=== PATIENT | female | born 1990 | race Caucasian/White ===

== ENCOUNTER → 2017-12-05 15:31 | Outpatient (CLI) | payer MEDICAID, SELFPAY | PROVIDERS: Visit Provider Obstetrics & Gynecology | DX: R30.0 Dysuria (principal) | CPT/HCPCS: 87086; 87088 ==

== ENCOUNTER → 2018-03-02 13:23 | Outpatient (CLI) | payer MEDICAID, SELFPAY ==
--- NOTE | 2018-03-02 13:30 | US_ITS ---
STUDY: ULTRASOUND BREAST - LEFT REASON FOR EXAM: Female, 27 years old. History of left nipple discharge and rash along the lateral aspect of the left breast. TECHNIQUE: Axial and longitudinal images of the LEFT breast were performed with a high resolution ultrasound transducer. COMPARISON: None. FINDINGS: LEFT Breast: The lateral aspect of the left breast was examined by ultrasound. There is a 6 mm x 7 mm x 2 mm hypoechoic superficial nodular density just deep to the skin. This is at the 2 to 3:00 position. A similar-appearing hypoechoic density is seen at T4 30 position breast at 5 cm from the nipple. This measures 4 mm x 2 mm x 2 mm. US/Breast Limited Unilateral IMPRESSION: Findings suggestive of 2 small sebaceous cysts just deep to the skin. Clinical correlation is recommended. ASSESSMENT CATEGORY: BIRADS Category 2: Benign. A letter regarding these results will be sent to the patient by the facility within 30 days. Electronically Signed: Kaveh Randall MD at 9:41 EDT Tel [phone], Service support ,
== END ==
PROVIDERS: Family Provider Family Medicine; PCP Family Medicine; Visit Provider Obstetrics & Gynecology
DX: N60.82 Other benign mammary dysplasias of left breast (principal)
CPT/HCPCS: 76642

== ENCOUNTER 2018-05-08 21:43 | Emergency (ER) | payer MEDICAID, SELFPAY ==
[2018-05-08 21:45] VITALS: BP 142/60; PULSE 110; RESP 18; TEMP 37.2; O2SAT 99; BMI 31.4
--- NOTE | 2018-05-08 21:47 | RAD_ITS ---
STUDY: X-RAY - RIGHT ELBOW REASON FOR EXAM: Female, 27 years old. Fall TECHNIQUE: 3 view(s) of the elbow. COMPARISON: None. FINDINGS: There is no evidence of fracture or dislocation. There are no significant degenerative changes. There are no radiodense foreign bodies. RAD/Elbow min 3 Views IMPRESSION: No fracture or dislocation. Electronically Signed: Vinay Vivas, at 22:07 EDT Tel , Service support ,
--- NOTE | 2018-05-08 22:46 | ED.VISSUMM ---
- ER Visit Summary Date of Service: 05/08/18 Chief Complaint: Elbow pain History of Present Illness: The patient is a 27 F with right elbow pain. The patient fell off a trampoline yesterday. She complains of pain over her right olecranon area. Worse with movement. No other injuries or complaints. She does have some paresthesias in her right thumb and right little finger. Physical Examination: Afebrile vital signs unremarkable except for a heart rate of 110. Head and neck are atraumatic. Inspection of her right arm is normal. She has good range of motion. There is tenderness over her right olecranon. Neurovascular intact distally. No deformities. Test Results: X-rays unremarkable. Emergency Department Course and Treatment: Rest, ice, elevate. Anti-inflammatories. Sling. Follow-up with primary care for recheck. Treatment Plan: As above Disposition: Discharged Impression: 1. Right elbow contusion This note was generated with [employer] dictation software. It may contain incorrect words, spelling, and punctuation that were not noted in review of the chart prior to signing ED Disposition - Plan for ED Patient: Chief Complaint: Upper Extremity Injury Referrals: Anthony Almodovar MD [Primary Care Provider] -
--- NOTE | 2018-05-08 22:48 | ED.DEP ---
ED Disposition - Plan for ED Patient: Chief Complaint: Upper Extremity Injury Instructions: ED Sprain Elbow Prescriptions: Naproxen [Naprosyn] 500 mg PO BID PRN #20 tab Referrals: Anthony Almodovar MD [Primary Care Provider] -
[2018-05-08 23:11] VITALS: PULSE 88; RESP 16
== END 2018-05-08 23:12 | disposition home or self-care (01) ==
PROVIDERS: Emergency Provider Emergency Medicine; Family Provider Family Medicine; PCP Family Medicine
DX: S50.01XA Contusion of right elbow, initial encounter (principal); W17.89XA Other fall from one level to another, initial encounter; Y93.44 Activity, trampolining; Y92.9 Unspecified place or not applicable; Z72.0 Tobacco use
CPT/HCPCS: 73080; 99283

== ENCOUNTER 2018-07-15 02:31 | Emergency (ER) | payer MEDICAID, SELFPAY ==
[2018-07-15 02:32] VITALS: BP 132/99; PULSE 110; RESP 16; TEMP 37; O2SAT 99; BMI 33.3
--- NOTE | 2018-07-15 02:59 | ED.VISSUMM ---
- ER Visit Summary Date of Service: 07/15/18 Chief Complaint: Medication reaction History of Present Illness: The patient is a 27 F presenting for evaluation secondary to a potential medication reaction. Patient reports over the course of approximately the last week she has been dealing with some lower back pain and over the course last couple of days it was associated with suprapubic pain and pain with urination. Patient states that it has not been associated with any sort of fevers. She denies any nausea or vomiting associated with this. She was seen at an outside facility for this today, and had a CT scan of the abdomen rule out kidney stones and had a urinalysis that showed evidence of infection. Patient reports that she received a shot of Toradol and Rocephin. Patient reports that the injection site of the Rocephin on the left seems to be painful and seems to be radiating up into her paraspinal lower back on the left. She denies any radiation to legs bowel or bladder and continence or any saddle anesthesia or numbness. Patient was concerned that this is potentially an allergic reaction as she does have a history of hives in reaction to penicillin in the past. She is unsure if she was discharged with any sort of antibiotics. Physical Examination: Vital signs are within normal limits except for tachycardia with a rate of 110, patient is afebrile. General: Patient is well-nourished well-developed and in no acute distress. Head: Normocephalic, atraumatic Eyes: Pupils equal round and reactive bilaterally, extra occular motion intact bialterally ENT: Moist mucous membranes Neck: Supple, no lymphadenopathy, no JVD, no meningismus CVS: Heart regular rhythm with tachycardia, no murmurs, rubs or gallops, radial pulses 2+ bilaterally Resp: Respirations nondistressed, lung sounds clear bilaterally Abdomen: Soft, nontender, nondistended, no palpable masses, normal bowel sounds Back: Left-sided lumbar paraspinal tenderness to palpation. Left upper buttock injection site clean dry and intact Extremities: Nontender, atraumatic, active full range of motion, no peripheral edema Skin: warm, no rashes, no petechia Neuro: Alert and oriented x 4, CN 2-12 intact, no lateralizing neurological defecits Psyc: Normal affect Test Results: CBC, chemistry unremarkable. Urinalysis demonstrates evidence of infection Emergency Department Course and Treatment: Patient presented for evaluation secondary to pain after an injection. She was somewhat tachycardic I was at least concerned for the possibility of pyelonephritis and the patient so workup was obtained she was given 2 L normal saline was given [place]. She did have improvement on repeat evaluation. Her urinalysis did demonstrate evidence of infection. She has no evidence of spinal cord involvement or any serious neurologic compromise and this also does not seem consistent with an allergic reaction. She likely has some injection site pain. Given the fact that the patient was unsure of whether or not she was discharged with any antibiotics I will send her home with a course of Bactrim. She will follow-up with her primary care physician. Disposition: Discharge Impression: 1. Injection site pain 2. Urinary tract infection This note was generated with [email or web address] dictation software. It may contain incorrect words, spelling, and punctuation that were not noted in review of the chart prior to signing ED Disposition - Plan for ED Patient: Disposition: Home or Assisted Living Chief Complaint: Allergic Reaction Diagnosis: UTI (urinary tract infection) Instructions: ED UTI Cystitis Female Prescriptions: Smz/Tmp Ds [Bactrim Ds] 1 tab PO BID #14 tab Referrals: Anthony Almodovar MD [Primary Care Provider] - 3-5 Days
[2018-07-15] MEDS: HYDROcodone Bitartrate/Apap 5/325 Tablet PO ×2 (03:11→05:22)
[2018-07-15] MEDS: 0.9% Normal Saline 1,000 ML 1000 ML IV ×2 (03:11→04:31)
[2018-07-15 03:20] LABS: Red Blood Cells-Urine 0 SEEN /hpf (0-5)
[2018-07-15 03:27] LABS: Color, Urine Yellow (Yellow); Glucose, Dipstick Normal (Normal); Ketone-Dipstick 5 mg/dl (Negative); Leukocyte Esterase-Dipstick 500 /ul (Negative); Nitrite-Dipstick Negative (Negative); Occult Blood-Urine 10 /ul (Negative); Protein-Dipstick 30 mg/dl (Negative); Specific Gravity, Urine 1.025 (1.002-1.030); Urine Bilirubin Dipstick Negative (Negative); Urine Clarity Cloudy (Clear); Urine Urobilinogen 1 mg/dl (Normal)
[2018-07-15 03:28] LABS: Internal QC Validated? YES +Cl - CLEAR BKGD; Pregnancy, Urine Negative Negative
[2018-07-15 03:31] LABS: Absolute Lymphocyte Count 2.74 X10^3/ul (0.83-4.51); Absolute Neutrophil Count 5.1 X10^3/uL (2.0-7.7); Basophil# 0.04 X10^3/uL; Basophil% 0.5 % (0-1); Eosinophil# 0.04 X10^3/uL; Eosinophils% 0.5 % (0-5); Hematocrit 40.5 % (37-47); Hemoglobin 14.2 g/dl (12.0-15.0); Lymphocyte # 2.74 X10^3/ul (4.0); Lymphocyte % 31.4 % (19-41); Mean Corp Hgb Conc 35.1 g/gl (32-36); Mean Corpuscular Hgb 28.8 pg (27.0-32.0); Mean Corpuscular Volume 82.2 fL (81-99); Mean Platelet Vol. 9.8 fl (6.2-12.0); Monocyte# 0.78 X10^3/uL; Monocyte% 8.9 % (0-10); Neutrophil # 5.12 X10^3/uL (2.7-7.7); Neutrophil % 58.6 % (47-70); Platelet Count 243 K/mm3 (150-450); RBC Distribution Width CV 13.8 % (11.6-14.6); RBC Distribution Width SD 41.1 fl (35.1-43.9); Red Blood Count 4.93 M/mm3 (4.2-5.4); White Blood Count 8.7 K/mm3 (4.4-11.0)
[2018-07-15 03:32] LABS: Differential Indicated SCAN CRITERIA MET; POSITIVE COUNT NO; POSITIVE DIFFERENTIAL NO; POSITIVE MORPHOLOGY YES
[2018-07-15 03:33] LABS: Bacteria 1+ /hpf (None Seen); Mucous, Urine 2+ /hpf (<or=2+); Squamous Epithelial Cells - UA 25-50 SEEN /hpf (5-10); White Blood Cells 5-10 SEEN /hpf (0-5)
[2018-07-15 03:34] LABS: Anion Gap 11 (5-15); BUN 18 mg/dL (7-18); BUN/Creat Ratio 22.3 RATIO (10-20); Calcium,Total 9.1 mg/dL (8.5-10.1); Chloride 103 mmol/L (98-107); Creatinine, Serum 0.81 mg/dL (0.55-1.02); EST Glomerular Filtration Rate 89 mL/min (>60); Est Glom Filt Rate - Afr Amer 108 mL/min (>60); Estimated Creatinine Clearance 84.77 ml/min; Glucose 102 mg/dL (74-106); Potassium 3.6 mmol/L (3.5-5.1); Sodium Level 142 mmol/L (136-145)
[2018-07-15 05:30] VITALS: BP 116/84; PULSE 91; RESP 16; RESP 18; O2SAT 100
== END 2018-07-15 05:30 | disposition home or self-care (01) ==
PROVIDERS: Emergency Provider Emergency Medicine; Family Provider Family Medicine; PCP Family Medicine
DX: M79.1 Myalgia (principal); N39.0 Urinary tract infection, site not specified; B96.89 Other specified bacterial agents as the cause of diseases classified elsewhere
CPT/HCPCS: 80048; 81001; 81025; 85025; 96360; 96361; 99284; J7030

== ENCOUNTER 2020-04-19 16:12 | Emergency (ER) | payer SELFPAY ==
[2020-04-19 16:14] VITALS: BP 87/31; PULSE 75; RESP 16; TEMP 36.4; O2SAT 93; BMI 30.9
[2020-04-19 16:16] VITALS: BP 107/94; PULSE 75; RESP 16; TEMP 36.4; O2SAT 93
--- NOTE | 2020-04-19 16:24 | ED.VISSUMM ---
- ER Visit Summary Date of Service: 04/19/20 Chief Complaint: Abscess History of Present Illness: The patient is a [address] Terry. She reports that she has an abscess to the left side of her neck anteriorly began yesterday. States that she squeezed this and got out pus and blood. She has an achy present and worsens at a 10 currently. Is worsened by touching it. Is relieved by Tylenol and ibuprofen. She denies any constitutional symptoms. No fever, chills, nausea, or vomiting. Physical Examination: Vitals: Stable. Afebrile. General: Well-nourished and well-developed. Head: Normocephalic atraumatic. Neck: Supple, no lymphadenopathy. No JVD. Nontender. Cardiovascular: Regular rate and rhythm. No murmurs. Respiratory: No respiratory distress. Clear to auscultation bilaterally. Abdominal: Soft, nontender, nondistended, normal bowel sounds. No guarding, rebound, or peritoneal signs. Back: Nontender. Extremities: Nontender, no edema. Skin: To the left side of her neck on the anterior portion there is an approximately 5 mm superficial ulcer with approximately 2 cm of surrounding erythema. There is no induration, fluctuance, or drainage.. Neurologic: Alert and oriented ?3. Cranial nerves II through XII are intact. Normal strength and sensation. Psych: Normal affect. Emergency Department Course and Treatment: Had a prolonged discussion with patient at this time there is no purulent collection to be drained. She was given doxycycline p.o. Treatment Plan: Patient is instructed to use warm compresses to the area. She will be discharged with doxycycline and Bactroban. Follow-up with her primary care physician in 2 days for a wound check. She does understand of his not improving with conservative measures that ultimately she may require an I&D. Disposition: To home in improved and stable condition. Impression: 1. Small abscess to left side of neck. This note was generated with [employer] dictation software. It may contain incorrect words, spelling, and punctuation that were not noted in review of the chart prior to signing ED Disposition - Plan for ED Patient: Instructions: ED Abscess Antibiotic Treatment Only Prescriptions: Mupirocin [Bactroban] 1 applic TOPICAL TID #1 tube Doxycycline 100 mg PO BID #14 capsule Referrals: Anthony Almodovar MD [Primary Care Provider] - 2 Days for wound check
[2020-04-19] MEDS: Doxycycline 100 MG CAPSULE PO (16:27)
== END 2020-04-19 16:39 | disposition home or self-care (01) ==
PROVIDERS: Emergency Provider Emergency Medicine; PCP Family Medicine
DX: L02.11 Cutaneous abscess of neck (principal); F17.200 Nicotine dependence, unspecified, uncomplicated
CPT/HCPCS: 99283

== ENCOUNTER 2020-09-20 17:19 | Emergency (ER) | payer SELFPAY ==
[2020-09-20 17:21] VITALS: BP 131/103; PULSE 108; RESP 17; TEMP 36.4; O2SAT 98; BMI 27.1
--- NOTE | 2020-09-20 17:53 | CT_ITS ---
STUDY: CT ABDOMEN AND PELVIS WITHOUT CONTRAST REASON FOR EXAM: Female, 29 years old. LEFT FLANK PAIN X 1 DAY, HX KS, APPY, GB, IUD, LEFT OOPHRECTOMY, HYSTERECTOMY, TUBAL RADIATION DOSAGE (If Supplied By Facility): CTDIvol = ( 7.51 ) mGy, DLP = ( 384.49 ) mGycm TECHNIQUE: Transaxial images were obtained from the dome of the diaphragm to the symphysis pubis without oral contrast, and without intravenous contrast. Sagittal and coronal images were reconstructed. Individualized dose optimization techniques were used for this CT. COMPARISON: 08/29/2016 FINDINGS: The visualized lung bases are unremarkable. The visualized portions of the heart are within normal limits. There is decreased attenuation of the liver consistent with steatosis. The gallbladder is absent. Normal spleen. Normal pancreas. Normal bilateral adrenal glands. Normal right kidney. 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 No hydronephrosis or calcifications. Normal visualized stomach. Normal small intestine. There are multiple colonic diverticula consistent with diverticulosis. There is non-visualization of the appendix. Normal abdominal aorta. Normal inferior vena cava. Normal retroperitoneum. Normal urinary bladder. There is absence of the uterus consistent with a prior hysterectomy. Operative changes of the abdominal wall. Normal osseous structures. CT/Abdomen/Pelvis without Cont IMPRESSION: 1. No hydronephrosis or urinary tract calcifications. Electronically Signed: Segundo Faustin MD ([place]) at 18:26 EST , Service support ,
--- NOTE | 2020-09-20 17:54 | ED.DCSUM_ITS ---
- ER Visit Summary Date of Service: 09/20/20 Chief Complaint: Left flank pain History of Present Illness: The patient is a 29 F who presents with left flank pain that began yesterday. Patient states it has gradually gotten worse. Patient states it is worse today. Patient describes the pain is sharp and b urning. Patient states the pain is localized to the left flank area. Patient states nothing makes it better or worse. Patient states she has a history of kidney stones and this feels similar to prior kidney stone pain. Patient denies any dysuria or hematuria. Patient admits to nausea but denies any vomiting. Physical Examination: Vital signs are stable. Patient is afebrile. Patient is in no acute distress. Oral mucosa is pink and moist. Neck is supple. Trachea is midline. There is no JVD. Heart was regular rate and rhythm. Lungs are clear and equal bilaterally. Abdomen is soft. Bowel sounds are normal. There is no tenderness. There is some left CVA tenderness. There is no rebound or guarding noted. Cranial nerves II through XII are intact. There are no focal motor or sensory deficits noted. Extremities are intact. There is no calf tenderness or edema. Test Results: CBC and basic metabolic profile were obtained were within normal limits. Urinalysis does not show any evidence of urinary tract infection. CT scan of the abdomen and pelvis was obtained. There is no acute abnormality noted. This was interpreted by the radiologist and reviewed by myself. Emergency Department Course and Treatment: Patient was given IV fluids, Toradol, and Zofran initially. Patient was having persistent pain. Patient was given a dose of morphine. Patient was advised of her findings. Patient was instructed to follow-up with her primary care physician in 5 to 7 days. Patient was instru cted to take Tylenol or ibuprofen as needed for pain. Patient understood and was agreeable with the plan. All questions were answered. Disposition: Discharge home Impression: 1. Left flank pain This note was generated with [employer] dictation software. It may contain incorrect words, spelling, and punctuation that were not noted in review of the chart prior to signing ED Disposition - Plan for ED Patient: Disposition: Home or Assisted Living Diagnosis: Left flank pain Instructions: ED Flank Pain Uncertain Cause Referrals: Anthony Almodovar MD [Primary Care Provider] - 3-5 Days
[2020-09-20] MEDS: 0.9% Normal Saline 1,000 ML 250 ML IV (17:58)
[2020-09-20] MEDS: Ondansetron 4 MG/2 ML Vial IV (17:59)
[2020-09-20] MEDS: Ketorolac 30 MG/ML Syringe IV (18:00)
[2020-09-20 18:08] LABS: Absolute Lymphocyte Count 1.49 X10^3/uL (0.83-4.51); Absolute Neutrophil Count 7.3 X10^3/uL (2.0-7.7); Basophil# 0.02 X10^3/uL; Basophil% 0.2 % (0-1); Eosinophil# 0.01 X10^3/uL; Eosinophils% 0.1 % (0-5); Hematocrit 42.6 % (37-47); Lymphocyte # 1.49 X10^3/ul (4.0); Lymphocyte % 16.3 % (19-41); Mean Corp Hgb Conc 35.2 g/dL (32-36); Mean Corpuscular Hgb 30.9 pg (27.0-32.0); Mean Corpuscular Volume 87.7 fL (81-99); Mean Platelet Vol. 9.8 fl (6.2-12.0); Monocyte# 0.32 X10^3/uL; Monocyte% 3.5 % (0-10); NRBC Flagged by Analyzer 0 % (0-5); Neutrophil # 7.26 X10^3/uL (2.7-7.7); Neutrophil % 79.7 % (47-70); Platelet Count 332 K/mm3 (150-450); RBC Distribution Width CV 12.8 % (11.6-14.6); RBC Distribution Width SD 38.1 fl (35.1-43.9); Red Blood Count 4.86 M/mm3 (4.2-5.4); White Blood Count 9.1 K/mm3 (4.4-11.0)
[2020-09-20 18:17] LABS: Anion Gap 8 (5-15); BUN 11 mg/dL (7-18); BUN/Creat Ratio 14.4 RATIO (10-20); Calcium,Total 9.5 mg/dL (8.5-10.1); Chloride 104 mmol/L (98-107); Creatinine, Serum 0.76 mg/dL (0.55-1.02); EST Glomerular Filtration Rate 93 mL/min (>60); Est Glom Filt Rate - Afr Amer 113 mL/min (>60); Estimated Creatinine Clearance 92.62 ml/min; Glucose 124 mg/dL (74-106); Potassium 3.8 mmol/L (3.5-5.1); Sodium Level 140 mmol/L (136-145)
[2020-09-20 18:30] LABS: Bacteria 0 SEEN /hpf (None Seen); Color, Urine Yellow (Yellow); Glucose, Dipstick Normal (Normal); Ketone-Dipstick Negative (Negative); Leukocyte Esterase-Dipstick 25 /ul (Negative); Mucous, Urine 0 SEEN /hpf (<or=2+); Nitrite-Dipstick Negative (Negative); Occult Blood-Urine 10 /ul (Negative); Protein-Dipstick Negative (Negative); Red Blood Cells-Urine 0 SEEN /hpf (0-5); Urine Bilirubin Dipstick Negative (Negative); Urine Clarity Clear (Clear); Urine Urobilinogen Normal (Normal); Urine pH 6.5 (5.0 - 8.0)
[2020-09-20 18:36] LABS: Squamous Epithelial Cells - UA 5-10 SEEN /hpf (5-10); White Blood Cells 0-5 SEEN /hpf (0-5)
[2020-09-20] MEDS: Morphine 2 MG/ML Syringe IV (19:32)
[2020-09-20 19:42] VITALS: BP 116/71; PULSE 74; RESP 15; O2SAT 98
--- NOTE | 2020-09-20 19:43 | ED.RN ---
PT OBSERVED FOR SHOT TIME NO REACTION NOTED BY THIS RN, PT D/C WITH DAD.
== END 2020-09-20 19:44 | disposition home or self-care (01) ==
PROVIDERS: Emergency Provider Emergency Medicine; PCP Family Medicine
DX: R10.9 Unspecified abdominal pain (principal); R11.0 Nausea; Z87.442 Personal history of urinary calculi; F17.200 Nicotine dependence, unspecified, uncomplicated
CPT/HCPCS: 74176; 80048; 81001; 85025; 96361; 96374; 96375; 99285; J7030; A4216; J2405

== ENCOUNTER 2023-02-09 19:43 | Emergency (ER) | payer MEDICAID, SELFPAY ==
[2023-02-09 19:44] VITALS: BP 135/87; PULSE 86; RESP 16; TEMP 37; O2SAT 96; BMI 34.0
--- NOTE | 2023-02-09 20:48 | EX.ED.DYSGE1 ---
HPI History of Present Illness Chief Complaint: Cough Informant: patient Narrative Narrative: 3-week history nonproductive cough. No fevers or myalgias. Reports dyspnea. Denies history of asthma or COPD. Tobacco history. Seen urgent care 2 weeks ago was put on 10-day course of doxycycline COVID was negative then. Symptoms not improving. Prior similar symptoms: Yes [facility] Medical History (Updated 02/09/23 @ 21:[address] John Teresa DO) Cough Home Medications NK 09/20/20 [History Last Taken Unknown] Allergy/AdvReac Type Severity Reaction Status Date / Time azithromycin [From Zithromax] Allergy Hives Verified 02/09/23 19:47 diphenhydramine Allergy Rash Verified 02/09/23 19:47 [From Benadryl] Penicillins Allergy Hives Verified 02/09/23 19:47 Social History Smoking Status: Current every day smoker tobacco type: cigarettes ROS ROS ED Constitutional Constitutional ED: Denies chills, fever(s) or sweats Eyes Eyes: Denies change in vision ENT ENT ED: Denies dysphagia or sore throat Cardiovascular Cardiovascular: Denies chest pain, leg edema, palpitations or racing heartbeat Respiratory/Chest Respiratory/Chest: Reports cough and dyspnea; Denies dyspnea on exertion Gastrointestinal Gastrointestinal: Denies abdominal pain, diarrhea, nausea or vomiting Genitourinary Genitourinary ED: Denies dysuria, hematuria or urinary frequency Musculoskeletal Musculoskeletal: Denies back pain, extremity pain or neck pain Integumentary Denies rash or wounds Neurologic Neurologic: Denies headache(s), paresthesias or weakness EXAM Physical Exam Const Vital Signs: 02/09/23 19:44 02/09/23 20:35 02/09/23 20:58 Temperature 98.6 F Temperature Source Temporal Pulse Rate 86 Respiratory Rate 16 Respiratory Effort Normal Non-Labored Respiratory Depth Normal Respiratory Pattern Normal Blood Pressure 135/87 H Blood Pressure Mean 103 Pulse Ox 96 Oxygen Delivery Method Room Air Room Air 02/09/23 21:33 Temperature Temperature Source Pulse Rate Respiratory Rate Respiratory Effort Respiratory Depth Respiratory Pattern Blood Pressure Blood Pressure Mean Pulse Ox 98 Oxygen Delivery Method Positive well nourished and well developed General Appearance ED: well developed and NAD HEENT Reports moist mucous membranes normocephalic and atraumatic Eyes PERRL, EOMs intact bilaterally and conjunctivae normal General Eye ED: Yes normal appearance of both eyes Neck no lymphadenopathy and supple General: Negative for tenderness Chest Wall Chest: Negative for tenderness Resp normal respiratory effort and normal air movement Effort and Inspection: symmetric chest movement; Negative for respiratory distress Cardio regular rate, regular rhythm and no murmurs Peripheral Pulses: pulses 2+ throughout GI normal to inspection, nondistended, normoactive bowel sounds and non-tender Palpation: Negative for guarding or rebound tenderness present Back/Spine no CVA tenderness and no thoracic nor lumbar tenderness Extremity normal to inspection General Extremety ED: Negative for edema or tenderness General Extremity: Negative for edema Neuro oriented x3 and no sensory deficits noted Sensorium / Orientation: awake and alert Skin no rashes or lesions noted and no wounds MDM MDM MDM Narrative Medical decision making narrative: Interventions / MDM: Differential diagnosis: Viral syndrome, bronchitis, pneumonia Diagnosis considered but do not suspect: PE however PERC criteria negative. My EKG interpretation: N/A Imaging independently reviewed and interpreted by myself: 2 view chest x-ray: No acute process External documents reviewed: N/A Test considered but not ordered:N/A ED course: Vital signs stable. Nontoxic. No distress on exam. Two-view chest x-ray negative. Discussed viral syndrome with bronchitis with the patient. Tobacco cessation. Adjunct therapies for her cough. All questions were answered. Re-evaluation: stable Disposition discussed with patient/family/significant other: Patient Case discussed with consulting clinician: N/A Radiography Diagnostic Testing: Clinical Impression(s) from Imaging Studies Chest X-Ray 02/09/23 20:50 IMPRESSION: No radiographic evidence of acute cardiopulmonary disease. Electronically Signed: Milind aGrcia DO at 21:14 EDT Reading Location ID and State: [facility] / [place] Tel [phone], Service support , Discharge Plan Triage Chief Complaint: Cough ED Provider: John Teresa Dx/Rx/DC Orders Clinical Impression: Bronchitis, Tobacco dependence Instructions: ED Bronchitis, No Antibiotic (Adult) Prescriptions: No Action NK Primary Care Provider: Anthony Almodovar Referrals: Anthony Almodovar MD [Primary Care Provider] - 1 Week Activity Restrictions/Additional Instructions: Chest x-ray negative. Discussed adjunct therapies for your cough symptoms. Stop smoking. Follow-up with your doctor. Disposition Disposition: Home, Self Care Discharge Date/Time: 02/09/23 21:33
--- NOTE | 2023-02-09 20:50 | RAD_ITS ---
INDICATION: cough EXAMINATION/TECHNIQUE: X-RAY - XR Chest 2 Views COMPARISON: June 09, 2017. FINDINGS: LINES/DEVICES: None. LUNGS: No consolidation, edema or effusion. No pneumothorax. MEDIASTINUM AND CARDIOVASCULAR STRUCTURES: Cardiac silhouette not enlarged. Central airways and mediastinal contour are unremarkable. BONES AND SOFT TISSUES: Slightly deformed upper right rib cage. RAD/Chest PA and Lateral IMPRESSION: No radiographic evidence of acute cardiopulmonary disease. Electronically Signed: Milind Garcia DO at 21:14 EDT ,
[2023-02-09 21:33] VITALS: O2SAT 98
== END 2023-02-09 21:33 | disposition home or self-care (01) ==
PROVIDERS: Emergency Provider Emergency Medicine; PCP Family Medicine; Visit Provider Emergency Medicine
DX: J40 Bronchitis, not specified as acute or chronic (principal); F17.210 Nicotine dependence, cigarettes, uncomplicated
CPT/HCPCS: 71046; 87811; 94760; 99282

== ENCOUNTER 2024-04-25 09:18 | Observation (INO) | payer MEDICAID, SELFPAY ==
[2024-04-25] VITALS (7 sets, daily range): BP systolic 118–133; BP diastolic 74–96; PULSE 46–99; RESP 14–18; TEMP 35.7–36.7; O2SAT 97–100; BMI 31.4
--- NOTE | 2024-04-25 10:30 | EX.ED.SAOD ---
HPI History of Present Illness Chief Complaint: Substance Abuse Detail of Chief Complaint: Requesting detox from fentanyl and adverse reaction to Suboxone Informant: patient Onset/Context/Timing Onset: Yesterday Context: Sudden Onset Timing: Continuous Quality: Feels ill, tremors Location: generalized Current Severity: Mild Maximum Severity: Mild Worsened by: abstinence and Suboxone Relieved by: Nothing Associated Symptoms Associated Symptoms: Positive for tremor, palpatations and no; Negative for vomiting*, diarrhea*, fever*, rash*, seizure, change in mental status, trauma or sex for drugs* Narrative Narrative: Patient is a 33-year-old woman. She admits to snorting gram of fentanyl daily. She has not used any fentanyl in 48 hours. 8 hours ago she took Suboxone. She states she has not felt well since taking Suboxone. Patient denies fever has had chills and tremors. She complains of vague head discomfort. Denies double vision, blurred vision loss of vision. She denies rhinorrhea. She denies sore throat. She denies chest pain or shortness of breath. She complains of vague abdominal discomfort. She has had no vomiting or diarrhea. She denies dysuria, frequency, urgency or hematuria. Prior similar symptoms: No Recent Illness/Hospitalization: No [facility] Medical History (Updated 04/25/24 @ 11:[address] Evgeny Hodge MD) Cough Home Medications ?Medication ?Instructions ?Recorded ?Last Taken ?Type buprenorphine 8 mg-naloxone 2 mg 1 ea sublingual DAILY 04/25/24 04/24/24 History sublingual film doxepin 25 mg capsule 25 mg PO QHS 04/25/24 04/24/24 History ondansetron HCl 4 mg tablet 8 mg PO BID 04/25/24 04/24/24 History Allergy/AdvReac Type Severity Reaction Status Date / Time azithromycin (From Zithromax) Allergy Hives Verified 04/25/24 09:19 diphenhydramine (From Allergy Rash Verified 04/25/24 09:19 Benadryl) Penicillins Allergy Hives Verified 04/25/24 09:19 Social History (Updated 04/25/24 @ 10:[address] Evgeny Hodge MD) Smoking Status: Current every day smoker tobacco type: cigarettes alcohol intake: former substance use type: opiates ROS ROS ED Constitutional Constitutional ED: Reports chills; Denies fever(s), subjective or sweats Eyes Eyes: Denies blurry vision, change in vision or diplopia ENT ENT ED: Denies ear pain, rhinorrhea or sore throat Cardiovascular Cardiovascular: Denies chest pain, orthopnea, palpitations or paroxysmal nocturnal dyspnea Respiratory/Chest Respiratory/Chest: Denies cough, dyspnea, dyspnea on exertion, orthopnea or paroxysmal nocturnal dyspnea Gastrointestinal Gastrointestinal: Reports nausea; Denies abdominal pain, constipation, diarrhea, melena or vomiting Genitourinary Genitourinary ED: Denies dysuria or urinary frequency Musculoskeletal Musculoskeletal: Denies arthralgias or myalgias Integumentary Denies rash Neurologic Neurologic: Denies headache(s) or paresthesias Psychiatric Psychiatric: Reports depression; Denies anxiety Endocrine Endocrinology: Denies cold intolerance or heat intolerance Hematologic/Lymphatic Hematologic/Lymphatic: Denies easy bleeding or easy bruising Allergic/Immunologic Allergic/Immunologic ED: Denies mouth swelling or tongue swelling EXAM Physical Exam Const Vital Signs: 04/25/24 09:19 Temperature 96.3 F L Temperature Source Temporal Pulse Rate 94 Respiratory Rate 14 Blood Pressure 126/95 H Blood Pressure Mean 105 Pulse Ox 100 Oxygen Delivery Method Room Air Positive well nourished, well developed, obese and unkempt Constitutional Narrative: Patient appears unwell. General Appearance ED: unkempt and well developed; Negative for pallor Nutritional Appearance: obese HEENT Reports dry mucous membranes HEENT Narrative: Ears normal. Nares patent. Posterior pharynx is normal. atraumatic Mouth ED: Yes dry mucous membranes Mouth: dry mucous membranes Eyes PERRL and EOMs intact bilaterally Eyes Narrative: There is no nystagmus. General Eye ED: Negative for pale conjunctiva or scleral icterus Lymph Lymphatic: no lymphadenopathy noted and lymphadenopathy Chest Wall inspection of chest normal and palpation of chest normal Resp normal respiratory effort and clear to auscultation bilaterally Cardio regular rate, regular rhythm, S1 normal heart sound, S2 normal heart sound and no murmurs GI soft to palpation, non-tender, non-distended and no masses Auscultation: hypoactive bowel sounds Back/Spine no CVA tenderness Extremity General Extremety ED: Negative for edema or tenderness General Extremity: Negative for edema Neuro oriented x3, CN's II-XII intact bilaterally and no sensory deficits noted [place] Coma Scale: document GCS findings Spontaneous Obeys Commands Oriented 15 Speech: speech normal Motor Exam: strength 5/5 throughout Psych Appearance: unkempt Mood & Affect: depressed Skin General Skin Exam: Negative for jaundice or pallor Lesions: no lesions Rashes: no rashes MDM MDM MDM Narrative Medical decision making narrative: Patient presents for adverse reaction to Suboxone and opiate detox. Patient's never been [facility] to [facility] for [facility]. She understands she is not able to smoke. ED addiction order set was initiated. Awaiting results prior to calling hospitalist for admission. Last ER visit was January 2023 for upper respiratory infection. She was seen August 2020 for left flank pain and March 2020 for neck abscess. History & Record Review Additional record(s) reviewed:: Prior ED visit and Prior labs Lab Data Attestation: I reviewed the patient's lab results. Lab results narrative: Comprehensive metabolic panel is unremarkable. Talk screen is positive for opiates, amphetamines and ecstasy. test was negative. Labs: Laboratory Results - last 24 hr 04/25/24 10:00 Sodium 139 Potassium 3.4 L Chloride 105 Carbon Dioxide 27.0 Anion Gap 7 BUN 10 Creatinine 0.95 Estim Creat Clear Calc 82.93 Est GFR (MDRD) Af Amer 86 Est GFR (MDRD) Non-Af 71 BUN/Creatinine Ratio 10.5 Glucose 114 H Calcium 8.9 Total Bilirubin 0.40 AST 27 ALT 40 Alkaline Phosphatase 120 H Total Protein 7.6 Albumin 3.7 Globulin 3.9 Albumin/Globulin Ratio 0.9 Serum , Qual NEGATIVE Urine Opiates Screen POSITIVE H Urine Methadone Screen NEGATIVE Ur Barbiturates Screen NEGATIVE Ur Phencyclidine Scrn NEGATIVE Ur Amphetamines Screen POSITIVE H MDMA (Ecstasy) Screen POSITIVE H U Benzodiazepines Scrn NEGATIVE Urine Cocaine Screen NEGATIVE U Cannabinoids Screen NEGATIVE Ur Drug Screen Comment Management Discussion w/another healthcare provider: Hospitalist (Dr. Erickson was made aware of history physical and need for admission.) Discharge Plan Dx/Rx/DC Orders Clinical Impression: Opiate addiction, Ecstasy abuse, Amphetamine use Disposition Disposition: Acute Care Hospital [facility] [place] [facility]
[2024-04-25 10:38] LABS: ALB/GLOB Ratio 0.9 RATIO (0.9-2.4); AST(SGOT) 27 U/L (15-37); Alanine Aminotransfer ALT/SGPT 40 U/L (13-56); Albumin, Serum 3.7 g/dL (3.2-5.0); Alkaline Phosphatase 120 U/L (45-117); Anion Gap 7 (5-15); BUN 10 mg/dL (7-18); BUN/Creat Ratio 10.5 RATIO (10-20); Calcium,Total 8.9 mg/dL (8.5-10.1); Chloride 105 mmol/L (98-107); Creatinine, Serum 0.95 mg/dL (0.55-1.02); EST Glomerular Filtration Rate 71 mL/min (>60); Est Glom Filt Rate - Afr Amer 86 mL/min (>60); Estimated Creatinine Clearance 82.93 ml/min; Globulin 3.9 g/dL (2.2-4.2); Glucose 114 mg/dL (74-106); Potassium 3.4 mmol/L (3.5-5.1); Protein, Total 7.6 g/dL (6.4-8.2); Sodium Level 139 mmol/L (136-145)
[2024-04-25 10:45] LABS: Internal QC Validated? YES +Cl - CLEAR BKGD; Pregnancy, Serum, hCG Quali. NEGATIVE Negative
[2024-04-25 10:47] LABS: Amphetamine Urine VISTA POSITIVE (<1000 ng/mL); Barbiturate Urine VISTA NEGATIVE (< 200 ng/mL); Benzodiazepine Urine VISTA NEGATIVE (< 200 ng/mL); Cocaine Urine VISTA NEGATIVE (< 300 ng/mL); Ecstacy Urine VISTA POSITIVE (< 500 ng/mL); Methadone Urine VISTA NEGATIVE (< 300 ng/mL); PCP Urine VISTA NEGATIVE (< 25 ng/mL); THC Urine VISTA NEGATIVE (< 50 ng/mL); Vista UDS pH Range 6
--- NOTE | 2024-04-25 11:28 | PCM.HP.STD ---
HPI - General General Date of Admission: 04/25/24 Date of Service: 04/25/24 Chief Complaint: Patient came for benzodiazepine withdrawal symptoms HPI Narrative ANY WRIGHT, is a 33 F with history of chronic opioid use and dependence came to ED for acute opioid withdrawal symptoms. Her last dose was 2 days ago. She is notes 1 g of fentanyl every day. She has been doing for the last couple years 2 to 3 years. She denies using any IV needle use or history of chronic hep C hep B or HIV. She was having withdrawal symptoms as feeling lethargy, sleepy, nausea abdominal cramps muscle cramps and she took Suboxone at home but still symptoms were not controlled. Then she took methamphetamine yesterday. She states she usually does not take methamphetamine but might be once or twice a month. She also smokes cigarettes a pack per day but denies history of COPD or asthma. In ED, vitals labs were reviewed and patient further admitted. Family history not contributory to the present illness. [facility] Medical History Cough Home Medications ?Medication ?Instructions ?Recorded ?Last Taken ?Type buprenorphine 8 mg-naloxone 2 mg 1 ea sublingual DAILY 04/25/24 04/24/24 History sublingual film doxepin 25 mg capsule 25 mg PO QHS 04/25/24 04/24/24 History ondansetron HCl 4 mg tablet 8 mg PO BID 04/25/24 04/24/24 History Allergy/AdvReac Type Severity Reaction Status Date / Time azithromycin (From Zithromax) Allergy Hives Verified 04/25/24 09:19 diphenhydramine (From Allergy Rash Verified 04/25/24 09:19 Benadryl) Penicillins Allergy Hives Verified 04/25/24 09:19 Social History Smoking Status: Current every day smoker tobacco type: cigarettes alcohol intake: former substance use type: opiates ROS ROS Narrative Constitutional: Reports fatigue and weakness. No fever. HEENT: Reports systems reviewed and no addt'l complaints, except as documented Respiratory/Chest: No acute shortness of breath or respiratory distress or wheezing. CVS: No chest pain pressure or tightness. Gastrointestinal: Denies coffee ground emesis, hematemesis or vomiting Genitourinary: Abdominal cramps. Denies burning urination or new urinary tract symptoms Musculoskeletal: Muscle cramps. Denies acute joint pain or limited range of motion. No acute injury Neurologic: Denies seizure-like symptoms. skin: No ulcer. No rash Endocrinology: Reports systems reviewed and no addt'l complaints, except as documented Hematologic/Lymphatic: Reports systems reviewed and no addt'l complaints, except as documented Rest 14 ROS are negative except as mentioned in HPI Vital Signs Vital Signs Vital Signs: 04/25/24 09:19 Temperature 96.3 F L Temperature Source Temporal Pulse Rate 94 Respiratory Rate 14 Blood Pressure 126/95 H Blood Pressure Mean 105 Pulse Ox 100 Oxygen Delivery Method Room Air Weight Weight: 177 lb 0.499 oz Body Mass Index (BMI) 31.4 Physical Exam Narrative General: Alert, Oriented x3, Cooperative HEENT: Atraumatic, PERRLA, EOMI, Normocephalic Oral: Oral mucosa moist. No Gingival or Mucosal Lesions/ Ulcerations Neck: Supple, No JVD, Negative Carotid Bruits Chest wall/Lungs: Air entry diminished in bilateral lung bases. No crepitation/rhonchi Cardiovascular: Regular rate, Regular Rhythm, Normal S1, Normal S2, No M/G/R Abdomen: Bowel Sounds Present, Soft, Non Tender, Non-Distended : No dysuria. No renal angle tenderness. No suprapubic tenderness. Extremities: No edema, Capillary Refill Less than 3 Seconds Skin: No rashes, No breakdown Musculoskeletal: No Tenderness to Palpation of Joints or Extremities Neurological: Cranial nerves II-XII grossly intact, DTR 2+/4. No acute focal neurological deficit. Psych/Mental Status: Flat affect. Withdrawal symptoms. Results Lab / Micro Data 04/25/24 10:00 Labs: Laboratory Results - last 24 hr 04/25/24 10:00: Sodium 139, Potassium 3.4 L, Chloride 105, Carbon Dioxide 27.0, Anion Gap 7, BUN 10, Creatinine 0.95, Estim Creat Clear Calc 82.93, Est GFR (MDRD) Af Amer 86, Est GFR (MDRD) Non-Af 71, BUN/Creatinine Ratio 10.5, Glucose 114 H, Calcium 8.9, Total Bilirubin 0.40, AST 27, ALT 40, Alkaline Phosphatase 120 H, Total Protein 7.6, Albumin 3.7, Globulin 3.9, Albumin/Globulin Ratio 0.9, Serum , Qual NEGATIVE, Urine Opiates Screen POSITIVE H, Urine Methadone Screen NEGATIVE, Ur Barbiturates Screen NEGATIVE, Ur Phencyclidine Scrn NEGATIVE, Ur Amphetamines Screen POSITIVE H, MDMA (Ecstasy) Screen POSITIVE H, U Benzodiazepines Scrn NEGATIVE, Urine Cocaine Screen NEGATIVE, U Cannabinoids Screen NEGATIVE, Ur Drug Screen Comment Assessment & Plan Assessment/Plan (1) Opioid withdrawal delirium: PLAN: Plan This 33-year-old female came to ED for acute opioid withdrawal syndrome. 1. Acute opioid withdrawal syndrome: Patient is being admitted on Medr floor. The patient is started on buprenorphine along with other adjunctive medications as needed for medical stabilization as per order set of opioid withdrawal syndrome.Patient also on trazodone, hydroxyzine, gabapentin as needed ordered. Advised quitting opioid use. recreational vehicle resort manager consult. 2. Occasional methamphetamine use: Advised to quit methamphetamine use. 3. Chronic nicotine dependence/cigarette smoking: Nicotine ordered. Advised to quit smoking. 4. Chronic anxiety and depression: Patient on doxepin 25 mg nightly, continued DVT prophylaxis, low risk: Early ambulation encouraged. No prophylaxis indicated. Living will/advanced directive/end of life care: Patient does not have living will or advanced directive. Patient does not have living will or advance directive. After discussion of benefits/risks procedures involved with full code, DNR CC arrest and DNR CC, the patient opted for full code. Patient does want artificial life support including intubation, tube feed, ventilator and/chest compression, central venous catheter, vasopressor and DC shock if needed Charges/Coding Visit Charges Inpatient E&M: 61934 Init Hosp L3
[2024-04-25 11:56] LABS: Alcohol, Blood (Medical)-Serum < 3.0 mg/dL
--- NOTE | 2024-04-25 14:23 | CM.ED ---
Social Work Reason for intervention: RAMP admission Referral Source: SW identification Noted patient in the ED for substance use related issues and for admission for detox. Met with patient, along with VISOR INSTALLER Nicolette Melo, to check in on how patient is doing and answer any questions patient may have regarding the detox program. Patient denies any questions and reports understanding that cannot receive calls or have visitors during the RAMP admission. Educated that addiction therapist An will be seeing patient while in detox, and help patient in determining a plan for aftercare. Social work encouraged patient to keep an open mind for any after care recommendations offered to patient. Patient spontaneously shared that she is working with [facility], and has tried MAT at said agency. Drug of choice is reported as fentanyl. Patient reports Suboxone has not worked well for patient, on patient's own, though has worked well for patient's partner of 18 years (Yomi). Reports Yomi is the father to patient's 3 children (15, 11, and 8). Patient shared to have an open children services case with [facility] ([facility]), working with Ayde. Patient reports [facility] has placed the children with patient's mother, going on 9 months now. Patient reports there is a court date in April to discuss next steps, including possibility of an extension. Patient tearful about loss of children, reported desire to get children back, and importance/awareness of need to get sober in order to have a chance at reunification with children. Patient reports has been unable to even have supervised visits, and this has been hard, as well as placing a strain on relationship with patient's mother. Supportive listening provided to patient, encouragement for seeking out support and treatment. Patient signed a release of information to [facility] as patient indicated would like for [facility] to know of patient's voluntary admission to detox. Called [facility] at [phone] and spoke with Mayte in the intake department, as Ayde Merrill is out this week. Updated to detox admission. Mayte reports will make sure Ayde is updated. Call to An Addiction therapist at [facility], and message left of RAMP admission. Plan: Detox as per RAMP protocol. Hospital remains available should needs arise, but discharge plan as per [facility] Addiction therapist. -DONNA Avalos
[2024-04-25] MEDS: Ondansetron 8 MG Tablet PO (16:06)
[2024-04-25] MEDS: Acetaminophen 500 MG Tablet PO (16:06)
[2024-04-25] MEDS: Gabapentin 300 MG Capsule PO (16:06)
[2024-04-25] MEDS: Dicyclomine 10 MG Capsule 20 MG PO (17:45)
[2024-04-25] MEDS: Methocarbamol 750 MG Tablet PO (17:45)
[2024-04-25] MEDS: cloNIDine HCl 0.1 MG Tablet PO (17:45)
[2024-04-26 05:18] VITALS: BP 116/76; PULSE 53; RESP 14; TEMP 37.1; O2SAT 97
[2024-04-26] MEDS: Acetaminophen 500 MG Tablet PO (06:50)
[2024-04-26] MEDS: cloNIDine HCl 0.1 MG Tablet PO (06:50)
[2024-04-26] MEDS: Gabapentin 300 MG Capsule PO (06:50)
[2024-04-26] MEDS: Potassium Chloride Oral Tablet 20 MEQ 40 MEQ PO (06:50)
[2024-04-26] MEDS: Methocarbamol 750 MG Tablet PO (06:50)
[2024-04-26 10:12] VITALS: BP 111/69; PULSE 66; RESP 14; TEMP 36.6; O2SAT 100
[2024-04-26] MEDS: Buprenorphine HCl 2 MG TAB.SUBL SL ×2 (12:30→20:01)
--- NOTE | 2024-04-26 13:48 | ADDICTION ---
This functional tester typewriters met with PT to conduct ASAM, MSE, AUDIT assessments and to plan for d/c. PT A+Ox4 and participated actively. All assessments completed and placed in PT's chart. PT plans to f/u with [facility] for follow-up treatment services. PT did not indicate a need for transportation post d/c from [facility].
--- NOTE | 2024-04-26 14:52 | PN.HOSP_ITS ---
Reason for Visit Reason for Visit: Diagnoses Opioid use, unspecified with withdrawal (04/25/24) Objective Data Objective Data Vital Signs: Vital Signs Temp Pulse Resp BP Pulse Ox O2 Del Method 98 F 66 14 111/69 100 Room Air 04/26/24 10:12 04/26/24 10:12 04/26/24 10:12 04/26/24 10:12 04/26/24 10:12 04/26/24 10:12 Oxygen Delivery Method Room Air Weight: 177 lb 0.499 oz Body Mass Index (BMI) 31.4 Intake & Output: Intake and Output for Last 24 Hours 04/24/24 04/25/24 04/26/24 23:59 23:59 23:59 Intake Total 120 / 120 Balance 120 / 120 Lab / Micro Data 04/25/24 10:00 Physical Exam Narrative Seen and examined. Patient is feeling worse with symptoms of restlessness, abdominal and muscle cramps. Also feeling tremors and could not sleep. Physical exam General: Alert, Oriented x3, Cooperative HEENT: Atraumatic, PERRLA, EOMI, Normocephalic Oral: Oral mucosa moist. No Gingival or Mucosal Lesions/ Ulcerations Neck: Supple, No JVD, Negative Carotid Bruits Chest wall/Lungs: Air entry diminished in bilateral lung bases. No crepitation/rhonchi Cardiovascular: Regular rate, Regular Rhythm, Normal S1, Normal S2, No M/G/R Abdomen: Bowel Sounds Present, Soft, Non Tender, Non-Distended : No dysuria. No renal angle tenderness. No suprapubic tenderness. Extremities: No edema, Capillary Refill Less than 3 Seconds Skin: No rashes, No breakdown Musculoskeletal: No Tenderness to Palpation of Joints or Extremities Neurological: Cranial nerves II-XII grossly intact, DTR 2+/4. No acute focal neurological deficit. Psych/Mental Status: Flat affect. Withdrawal symptoms. Assessment & Plan Assessment/Plan (1) Opioid withdrawal delirium: PLAN: Plan This 33-year-old female came to ED for acute opioid withdrawal syndrome. 1. Acute opioid withdrawal syndrome: Patient is being admitted on MedSurg floor. The patient is started on buprenorphine along with other adjunctive medications as needed for medical stabilization as per order set of opioid withdrawal syndrome.Patient also on trazodone, hydroxyzine, gabapentin as needed ordered. Advised quitting opioid use. human resources training manager consult. 04/26: Opioid withdrawal score causes 7. AUDIT score is low 4. Continue above regimen. 2. Occasional methamphetamine use: Advised to quit methamphetamine use. 3. Chronic nicotine dependence/cigarette smoking: Nicotine ordered. Advised to quit smoking. 4. Chronic anxiety and depression: Patient on doxepin 25 mg nightly, continued DVT prophylaxis, low risk: Early ambulation encouraged. No prophylaxis indicated. Living will/advanced directive/end of life care: Patient does not have living will or advanced directive. Patient does not have living will or advance directive. After discussion of benefits/risks procedures involved with full code, DNR CC arrest and DNR CC, the patient opted for full code. Patient does want artificial life support including intubation, tube feed, ventilator and/chest compression, central venous catheter, vasopressor and DC shock if needed Charges/Coding Visit Charges Inpatient E&M: 54426 Subs Hosp L2
[2024-04-26 16:03] VITALS: BP 112/71; PULSE 78; RESP 16; TEMP 37.2; O2SAT 100
[2024-04-26] MEDS: traZODone 100 MG Tablet PO (20:00)
[2024-04-26] MEDS: Doxepin Hcl 25 MG Capsule PO (20:00)
[2024-04-26] MEDS: Dicyclomine 10 MG Capsule 20 MG PO (20:00)
[2024-04-27] MEDS: Buprenorphine HCl 2 MG TAB.SUBL SL ×3 (04:10→21:05)
[2024-04-27 08:00] VITALS: BP 114/68; PULSE 64; RESP 18; TEMP 36.9; O2SAT 93
[2024-04-27] MEDS: Potassium Chloride Oral Tablet 20 MEQ 40 MEQ PO (08:07)
[2024-04-27] MEDS: Methocarbamol 750 MG Tablet PO (08:16)
[2024-04-27] MEDS: Gabapentin 300 MG Capsule PO (08:16)
[2024-04-27] MEDS: cloNIDine HCl 0.1 MG Tablet PO (08:16)
--- NOTE | 2024-04-27 10:57 | PN.HOSP_ITS ---
Reason for Visit Reason for Visit: Diagnoses Opioid use, unspecified with withdrawal (04/25/24) Objective Data Objective Data Vital Signs: Vital Signs Temp Pulse Resp BP Pulse Ox O2 Del Method 98.4 F 64 18 114/68 93 Room Air 04/27/24 08:00 04/27/24 08:00 04/27/24 08:00 04/27/24 08:00 04/27/24 08:00 04/27/24 08:00 Oxygen Delivery Method Room Air Weight: 177 lb 0.499 oz Body Mass Index (BMI) 31.4 Intake & Output: Intake and Output for Last 24 Hours 04/25/24 04/26/24 04/27/24 23:59 23:59 23:59 Intake Total 120 / 120 Balance 120 / 120 Lab / Micro Data 04/25/24 10:00 Physical Exam Narrative Seen and examined. Patient feels slightly better than yesterday. She is Sterets he had better sleep yesterday. Still symptoms with muscle cramps and anxiety. Physical exam General: Alert, Oriented x3, Cooperative HEENT: Atraumatic, PERRLA, EOMI, Normocephalic Oral: Oral mucosa moist. No Gingival or Mucosal Lesions/ Ulcerations Neck: Supple, No JVD, Negative Carotid Bruits Chest wall/Lungs: Air entry diminished in bilateral lung bases. No crepitation/rhonchi Cardiovascular: Regular rate, Regular Rhythm, Normal S1, Normal S2, No M/G/R Abdomen: Bowel Sounds Present, Soft, Non Tender, Non-Distended : No dysuria. No renal angle tenderness. No suprapubic tenderness. Extremities: No edema, Capillary Refill Less than 3 Seconds Skin: No rashes, No breakdown Musculoskeletal: No Tenderness to Palpation of Joints or Extremities Neurological: Cranial nerves II-XII grossly intact, DTR 2+/4. No acute focal neurological deficit. Psych/Mental Status: Flat affect. Withdrawal symptoms. Anxiety. Assessment & Plan Assessment/Plan (1) Opioid withdrawal delirium: PLAN: Plan This 33-year-old female came to ED for acute opioid withdrawal syndrome. 1. Acute opioid withdrawal syndrome: Patient is being admitted on MedSur floor. The patient is started on buprenorphine along with other adjunctive medications as needed for medical stabilization as per order set of opioid withdrawal syndrome.Patient also on trazodone, hydroxyzine, gabapentin as needed ordered. Advised quitting opioid use. litigation manager consult. 04/26: Opioid withdrawal score causes 7. AUDIT score is low 4. Continue above regimen. 04/27: Seen score 3. Continue above medication. 2. Occasional methamphetamine use: Advised to quit methamphetamine use. 3. Chronic nicotine dependence/cigarette smoking: Nicotine ordered. Advised to quit smoking. 4. Chronic anxiety and depression: Patient on doxepin 25 mg nightly, continued DVT prophylaxis, low risk: Early ambulation encouraged. No prophylaxis indicated. Living will/advanced directive/end of life care: Patient does not have living will or advanced directive. Patient does not have living will or advance directive. After discussion of benefits/risks procedures involved with full code, DNR CC arrest and DNR CC, the patient opted for full code. Patient does want artificial life support including intubation, tube feed, ventilator and/chest compression, central venous catheter, vasopressor and DC shock if needed Charges/Coding Visit Charges Inpatient E&M: 59785 Subs Hosp L2
[2024-04-27 14:00] VITALS: BP 110/66; PULSE 68; RESP 18; TEMP 36.7; O2SAT 95
[2024-04-27 21:01] VITALS: BP 99/64; PULSE 55; RESP 16; TEMP 36.4; O2SAT 97
[2024-04-27] MEDS: Doxepin Hcl 25 MG Capsule PO (21:05)
[2024-04-28] MEDS: Buprenorphine HCl 2 MG TAB.SUBL SL ×3 (04:54→23:15)
[2024-04-28 04:56] VITALS: BP 99/61; PULSE 57; RESP 18; TEMP 36.8; O2SAT 100
[2024-04-28 07:58] VITALS: BP 125/79; PULSE 74; RESP 14; TEMP 36.8; O2SAT 100
--- NOTE | 2024-04-28 08:04 | PN.HOSP_ITS ---
Reason for Visit Reason for Visit: Diagnoses Opioid use, unspecified with withdrawal (04/25/24) Objective Data Objective Data Vital Signs: Vital Signs Temp Pulse Resp BP Pulse Ox O2 Del Method 98.2 F 74 14 125/79 H 100 Room Air 04/28/24 07:58 04/28/24 07:58 04/28/24 07:58 04/28/24 07:58 04/28/24 07:58 04/28/24 07:58 Oxygen Delivery Method Room Air Weight: 177 lb 0.499 oz Body Mass Index (BMI) 31.4 Lab / Micro Data 04/25/24 10:00 Physical Exam Narrative Seen and examined. Patient feels slightly better than yesterday. Patient is still feeling anxiety, muscle cramps although feeling better than yesterday. Physical exam General: Alert, Oriented x3, Cooperative HEENT: Atraumatic, PERRLA, EOMI, Normocephalic Oral: Oral mucosa moist. No Gingival or Mucosal Lesions/ Ulcerations Neck: Supple, No JVD, Negative Carotid Bruits Chest wall/Lungs: Air entry diminished in bilateral lung bases. No crepitation/rhonchi Cardiovascular: Regular rate, Regular Rhythm, Normal S1, Normal S2, No M/G/R Abdomen: Bowel Sounds Present, Soft, Non Tender, Non-Distended : No dysuria. No renal angle tenderness. No suprapubic tenderness. Extremities: No edema, Capillary Refill Less than 3 Seconds Skin: No rashes, No breakdown Musculoskeletal: No Tenderness to Palpation of Joints or Extremities Neurological: Cranial nerves II-XII grossly intact, DTR 2+/4. No acute focal neurological deficit. Psych/Mental Status: Flat affect. Mild withdrawal symptoms. Anxiety. Assessment & Plan Assessment/Plan (1) Opioid withdrawal delirium: PLAN: Plan This 33-year-old female came to ED for acute opioid withdrawal syndrome. 1. Acute opioid withdrawal syndrome: Patient is being admitted on [facility] floor. The patient is started on buprenorphine along with other adjunctive medications as needed for medical stabilization as per order set of opioid withdrawal syndrome.Patient also on trazodone, hydroxyzine, gabapentin as needed ordered. Advised quitting opioid use. operations research manager consult. 04/26: Opioid withdrawal score causes 7. AUDIT score is low 4. Continue above regimen. 04/27: Seen score 3. Continue above medication. 04/28: Patient has last dose of buprenorphine and has around midnight today and mild anxiety symptoms like cramps, could not rest well and requested Suboxone at time of discharge. I told cannot prescribes Suboxone but she clearly stated today to finish the last dose and discharged tomorrow AM. 2. Occasional methamphetamine use: Advised to quit methamphetamine use. 3. Chronic nicotine dependence/cigarette smoking: Nicotine ordered. Advised to quit smoking. 4. Chronic anxiety and depression: Patient on doxepin 25 mg nightly, continued DVT prophylaxis, low risk: Early ambulation encouraged. No prophylaxis indicated. Living will/advanced directive/end of life care: Patient does not have living will or advanced directive. Patient does not have living will or advance directive. After discussion of benefits/risks procedures involved with full code, DNR CC arrest and DNR CC, the patient opted for full code. Patient does want artificial life support including intubation, tube feed, ventilator and/chest compression, central venous catheter, vasopressor and DC shock if needed Charges/Coding Visit Charges Inpatient E&M: 23185 Subs Hosp L2
[2024-04-28] MEDS: Potassium Chloride Oral Tablet 20 MEQ 40 MEQ PO (10:11)
[2024-04-28 13:20] VITALS: BP 113/70; PULSE 83; RESP 14; TEMP 37.1; O2SAT 98
[2024-04-28 19:51] VITALS: BP 115/78; PULSE 69; RESP 16; TEMP 36.8; O2SAT 98
[2024-04-28] MEDS: cloNIDine HCl 0.1 MG Tablet PO (19:53)
[2024-04-28] MEDS: Dicyclomine 10 MG Capsule 20 MG PO (19:53)
[2024-04-28 23:13] VITALS: BP 108/78; PULSE 72; RESP 16; TEMP 36.9; O2SAT 97
[2024-04-28] MEDS: Doxepin Hcl 25 MG Capsule PO (23:15)
[2024-04-29 06:21] VITALS: BP 101/69; PULSE 70; RESP 16; TEMP 36.9; O2SAT 98
[2024-04-29] MEDS: Dicyclomine 10 MG Capsule 20 MG PO (07:58)
[2024-04-29] MEDS: cloNIDine HCl 0.1 MG Tablet PO (07:58)
[2024-04-29 09:00] VITALS: PULSE 71; RESP 12
--- NOTE | 2024-04-29 09:00 | ADDICTION ---
clinician met with client to discuss her hx of substance abuse/addiction. client was cooperative and openly discussed emotions that led her to ER for detox. Client reported that she is an active client at [facility]; [facility] 2.0/IOP. Once completed she will begin to attend community AA meetings for additional sober support. Client appears to have a good plan upon discharge; continue to attend IOP and learn about her addiction. Client discussed her motivation to remain sober; open children services case. when discussing this client became tearful. clinician briefly assisted client in processing emotions and her motivation to change.
--- NOTE | 2024-04-29 11:46 | DS.PCM_ITS ---
Providers Date of Admission: 04/25/24 Date of Discharge: 04/29/24 Primary Care Physician: Dr. Anthony Almodovar MD Reason For Visit: OPOID WITHDRAWAL Diagnosis Discharge Diagnosis (1) Opioid withdrawal delirium: Status: Acute Code(s): F11.93 - Opioid use, unspecified with withdrawal Medications at Discharge Home Medications buprenorphine 8 mg-naloxone 2 mg sublingual film 1 ea sublingual DAILY 04/25/24 doxepin 25 mg capsule 25 mg PO QHS 04/25/24 ondansetron HCl 4 mg tablet 8 mg PO BID 04/25/24 Hospital Course Operations None Procedures None Summary of Care Provided Minutes Spent on Discharge: 25 Hospital Course: Patient is a 33-year-old white female who presented to the emergency department on 04/25/2024 requesting opiate detox. She has a history of chronic opiate use and dependence and reported her last day prior to presentation was 2 days. She reported she uses about 1 g of fentanyl every day. She had been doing so for the past 2 to 3 years and denied any history of IV drug use. Upon presentation she was feeling lethargic, sleepy, nauseated and having abdominal cramping as well as muscle cramps. She reported she took Suboxone at home but her symptoms were not controlled so she came to the emergency department. She did use methamphetamines a day prior to presentation but states she typically does not use methamphetamines on a regular basis and maybe uses it once or twice a month if that. She also reported history of tobacco abuse. Vital signs prior to presentation were unremarkable. Her CBC and BMP were unremarkable. Her toxicology screen was positive for opiates, amphetamines, and MDMA/ecstasy. Alcohol level was unremarkable. She was admitted to the medical floor and placed on a Subutex taper. The patient overall had an uneventful withdrawal. She was evaluated by 180 and reported to them that she is an active client at [facility] and plans on attending [facility] appointments after discharge. She also reported that when she is completed she will attend daily community meetings for additional sober support. She was able to be discharged home with no medication changes on 04/29/2024 with outpatient follow-up as described above. I have asked that she follow-up with her primary care physician in the next 2 to 4 weeks to ensure good outpatient follow-up for medicine purposes. Discharge diagnoses: Acute opiate withdrawal Chronic opiate abuse Polysubstance abuse Depression Anxiety Obesity Nicotine abuse Physical Exam Const alert, oriented x3, no apparent distress, no limitations and well nourished; Negative for average body habitus or healthy appearing Constitutional Narrative: Obese, young middle-aged, white female, sitting up in bed watching television, appears comfortable and nontoxic General Appearance: cooperative, comfortable, well kempt and well developed Orientation / Consciousness: awake, oriented to person, oriented to place and oriented to time Exam Limitations: no limitations Nutritional Appearance: obese HEENT normocephalic, head/scalp atraumatic, hearing grossly normal bilaterally and moist oral mucous membranes HEENT Narrative: Mallampati is 2, no thrush Resp normal respiratory effort, no retractions, no use of accessory muscles and clear to auscultation bilaterally Auscultation: Negative for rales, rhonchi or wheezes Cardio regular rate, regular rhythm, S1 normal heart sound, S2 normal heart sound, no murmurs, no rub, no gallops and no clicks GI normal to inspection, nondistended, normoactive bowel sounds, soft to palpation and non-tender Extremity no clubbing, cyanosis or edema Neuro oriented x3, moves all extremities and no focal motor deficits Speech: speech normal Psych affect normal Psych Narrative: Eye contact is good and patient interacts appropriately Weight / BMI Weight Weight: 80.3 kg Body Mass Index (BMI) 31.4 ABG / Lab / Microbiology Data 04/25/24 10:00 D/C Instructions Discharge Diet: No restrictions Meaningful Use Info Meaningful Use Meaningful Use Diagnoses (Choose all that apply): None applicable Ischemic Stroke Statin Dosing Therapy Reference: STATIN DOSE THERAPY REFERENCE: * Patients > 75 years receive moderate or high dose statin therapy. * Patients 75 years or YOUNGER should receive HIGH intensity statin dose unless contraindicated. You will be required to document reason for non-treatment if statin daily dose does not meet guidelines. HIGH DOSE STATIN THERAPY DAILY Atorvastatin > than or = to 40 mg Rosuvastatin > than or = to 20 mg Amlodipine + Atorvastatin > than or = to 2.5/40 mg Ezetimibe + Simvastatin 10/80 mg Simvastatin 80mg Discharge Plan Admission Admit Date/Time: 04/25/24 11:25 Primary Reason for Your Visit: Opiate withdrawal Attending Provider: Shauna Robb Primary Care Provider: Anthony Almodovar Consulting Providers: Crescencio Kidd Discharge Orders/Prescriptions Prescriptions: Continued doxepin 25 mg capsule 25 mg PO QHS Patient Comments: PT STATES IT DOESNT WORK, SO SHES NOT TAKING ondansetron HCl 4 mg tablet 8 mg PO BID Held buprenorphine-naloxone 8-2 mg film 1 ea sublingual DAILY Hold Instructions: Until follow-up as an outpatient Patient Comments: PT BELIEVES SHE'S HAVING A REACTION, DOESNT WANT TO TAKE Referrals / Follow Up: Anthony Almodovar MD [Primary Care Provider] - Within 2 Weeks Disposition Disposition (needs filled in before D/C Order can be placed): Home, Self Care Charges/Coding Visit Charges Inpatient E&M: 00246 Disch Hosp
[2024-04-29 11:48] VITALS: BP 112/78; PULSE 74; RESP 12; TEMP 36.9; O2SAT 97
--- NOTE | 2024-04-29 11:55 | PHA.DC.MR.R ---
Pharmacy [place] Med Reconciliation Pharmacy Service has performed discharge medication reconciliation for this patient. The patient's discharge medication list was reviewed for discrepancies and discrepancies were resolved. Medications at Discharge Home Medications buprenorphine 8 mg-naloxone 2 mg sublingual film 1 ea sublingual DAILY 04/25/24 doxepin 25 mg capsule 25 mg PO QHS 04/25/24 ondansetron HCl 4 mg tablet 8 mg PO BID 04/25/24
[2024-04-29] MEDS: Buprenorphine HCl 2 MG TAB.SUBL SL (11:59)
[2024-04-29 12:00] VITALS: BP 110/78; PULSE 74; RESP 14; TEMP 37; O2SAT 97
== END 2024-04-29 12:11 | disposition home or self-care (01) ==
LOC: ED 11:13 → MS3 04-26 08:24
PROVIDERS: Admitting Provider Internal Medicine; Emergency Provider Emergency Medicine; PCP Family Medicine; Visit Provider Internal Medicine
DX: F11.23 Opioid dependence with withdrawal (principal); F16.10 Hallucinogen abuse, uncomplicated; F15.90 Other stimulant use, unspecified, uncomplicated; F17.210 Nicotine dependence, cigarettes, uncomplicated; E66.9 Obesity, unspecified; F41.9 Anxiety disorder, unspecified; F32.A Depression, unspecified; Z68.31 Body mass index [BMI] 31.0-31.9, adult
CPT/HCPCS: 36415; 80053; 80307; 80320; 84703; 99283; H0012; G0480